=== PATIENT | male | born 1985 | race Caucasian/White ===

== ENCOUNTER 2016-08-30 21:41 | Emergency (ER) | payer SELFPAY ==
[2016-08-30] MEDS ORDERED: CEPHALEXIN 500 MG CAPSULE ONE (22:45)
[2016-08-30] MEDS ORDERED: SULFAMETHOXAZOLE 800 MG/TRIMETHOPRIM 160 MG TABLET ONE (22:46)
== END 2016-08-30 23:00 | disposition home or self-care (01) ==
LOC: ED 21:41
DX: L02.415 Cutaneous abscess of right lower limb (principal); L03.115 Cellulitis of right lower limb; F17.200 Nicotine dependence, unspecified, uncomplicated; Z88.0 Allergy status to penicillin
CPT/HCPCS: 99283 ×2; A9270 ×2